=== PATIENT | female | born 1955 | race Caucasian/White ===

== ENCOUNTER 2019-12-13 23:33 | Emergency (ER) | payer MEDICARE, SELFPAY ==
--- NOTE | ~2019-12-13 | CT_ITS ---
EXAMINATION: CT brain wo con DATE: 12/14/2019 00:47 INDICATION: Status post fall. Head injury. Laceration. TECHNIQUE: Computed tomography (CT) of the head was performed without intravenous contrast. The dose- length product was 605.33 mGy-cm. COMPARISON: None FINDINGS: There is an acute subdural hematoma left high parietal convexity measuring 7 mm greatest th ickness. Small amount of subarachnoid hemorrhage in the right frontal lobe. No significant mass effec t. No ventriculomegaly or midline shift. A slurry cisterns are patent. No depressed skull fractures. There is a left posterior parietal scalp laceration. IMPRESSION: 1. Acute subdural hematoma left high parietal convexity measuring 7 mm greatest thickness. 2: Small subarachnoid hemorrhage right frontal lobe. Reviewed, dictated and finalized at location A. [employer] GU[employer]
[2019-12-13 23:31] VITALS: BP 145/79; PULSE 98; RESP 17; TEMP 37.1; O2SAT 100
--- NOTE | 2019-12-13 23:42 | ED.FALL ---
HPI - Fall General Chief Complaint: Fall Stated Complaint: fall Time Seen by Provider: 12/13/19 23:41 Source: patient and RN notes reviewed Mode of arrival: EMS Limitations: no limitations History of Present Illness HPI Narrative: The pt is a 64 y/o female who presents to the ED with c/o a fall that occurred this evening. The pt states that she had drank 3 gin and tonics and fell down two stair steps. The pt hit the back of her head during the fall but did not obtain any other injuries. The pt reports a laceration on her posterior scalp as well as pain at the back of her head around the site of the laceration, but denies LOC. She states that she has not been sick recently and that she is not on any blood thinners. complaint: fall Onset (ago): hour(s) (this evening) Fall from: down stairs (#) (2 stair steps) Loss of consciousness: none Context: alcohol use Associated symptoms (after fall): other (laceration on posterior scalp, pain at back of head) Related Data Home Medications Medication Instructions Recorded Confirmed alprazolam 12/14/19 levothyroxine 12/14/19 meloxicam 12/14/19 triamterene-hydrochlorothiazid tablet 12/14/19 Allergies Allergy/AdvReac Type Severity Reaction Status Date / Time Penicillins Allergy Unknown Verified 12/13/19 23:46 Review of Systems Review of Systems: All systems reviewed & are unremarkable except as noted in HPI and below Musculoskeletal: Musculoskeletal: Reports other (pain at back of head) Integumentary/Breasts: Skin/Breast: Reports other (laceration on posterior scalp) Neurologic: Denies syncope PMFSH Past Medical History Medical History (Updated 12/14/19 @ 02:07 by Piero Garcia MD) Anxiety Arthritis Hypertension Hypothyroid Surgical History Surgical History (Updated 12/14/19 @ 01:38 by Kathi Beckham) No pertinent past surgical history Social History Social History (Updated 12/14/19 @ 01:38 by Kathi Beckham) Smoking status: Never smoker Alcohol intake: current Exam Const: General: healthy appearing and no acute distress Nutritional Appearance: well nourished HENMT: Mouth: Yes lip normal and Yes moist mucous membranes Eyes: Conjunctivae: conjunctivae normal Pupils: Equal, round and reactive pupils present Resp: Effort & Inspection: normal respiratory effort Auscultation: clear to auscultation bilaterally Cardio: Rate: regular rate Rhythm: regular rhythm GI: GI Palp: Yes Soft to palpation and No Tenderness to palpation present (GI) Auscultation: normal bowel sounds Back/Spine/Pelvis: Back: other (full ROM) Skin: General skin exam: normal color, dry skin and other (warm) Other: 4cm irregular posterior scalp laceration Neuro: General: patient oriented x3 Speech: normal speech Extrem: General: full ROM Psych: Mental Status: mental status grossly normal Affect: normal affect Other: tearful Course Consultations Consultation #1: Discussed case with Dr. Mackenzie EDP at [facility]. Accepted admission to [place] ED. Date: 12/14/19 Time: 01:15 Vital Signs Vital signs: Vital Signs Temperature 37.1 C 12/13/19 23:31 Pulse Rate 98 12/13/19 23:31 Respiratory Rate 17 12/13/19 23:31 Blood Pressure 145/79 H 12/13/19 23:31 Pulse Oximetry 100 12/13/19 23:31 Temperature 37.1 C 12/13/19 23:31 Pulse Rate 97 12/14/19 01:55 Respiratory Rate 18 12/14/19 01:55 Blood Pressure 143/71 H 12/14/19 01:55 Pulse Oximetry 98 12/14/19 01:55 MDM - Fall Differential Diagnosis Differential diagnosis: Likely concussion without loss of consciousness and other (SDH, SAH, Scalp laceration, contusion) Medical Records Attestation: I reviewed the patient's medical records. Lab Data Attestation: I reviewed the patient's lab results. Result diagrams: 12/14/19 02:04 12/14/19 01:29 Labs: Lab Results 12/14/19 12/14/19 12/14/19 Range/Units 01:29 01:29 02:04
[2019-12-14 01:13] VITALS: BP 130/70; PULSE 95; RESP 17; O2SAT 98
[2019-12-14] MEDS: levETIRAcetam 1000MG/NACL100ML 1,000 MG/100 ML BAG 400 MG IVPB (01:39)
[2019-12-14 01:45] LABS: INR 0.8; Prothrombin Time 11.2 Seconds (11.1-14.7)
[2019-12-14 01:46] LABS: Blood Urea Nitrogen 23 mg/dL (7-17); Calcium 9.7 mg/dL (8.4-10.2); Carbon Dioxide 20 mmol/L (22-30); Chloride 101 mmol/L (98-107); Estimated CRCL calculation 72 ml/min; Estimated Glomerular Filt Rate > 60; Glucose 125 mg/dL (65-105); Partial Thromboplastin Time 25.9 SECONDS (22.3-36.8); Potassium 3.7 mmol/L (3.4-5.0); Sodium 137 mmol/L (137-145)
[2019-12-14 01:55] VITALS: BP 143/71; PULSE 97; RESP 18; O2SAT 98
--- NOTE | 2019-12-14 02:05 | PC.NURSE ---
0142 - [facility] decline transfer 0145 - [facility] accepted transfer with 0245 ETA. 0148 - [facility] accepted transfer. 0202 - Cancel [facility].
[2019-12-14 02:14] LABS: Basophils Percent Auto 0.2 % (0.2-1.2); Eosinophils Absolute Auto 0.1 K/mm3 (0-0.3); Hematocrit 40.7 % (37.0-47.0); Hemoglobin 13.6 g/dL (12.0-15.0); Immature Granulocyte Absolute 0.04 K/mm3 (0.00-0.031); Immature Granulocyte Percent A 0.4 % (0-0.5); Lymphocytes Absolute Auto 1.81 K/mm3 (0.9-3.2); Lymphocytes Percent Auto 17.6 % (18.3-44.2); Mean Corpuscular HGB Conc 33.4 g/dl (32-36); Mean Corpuscular Volume 92.7 fl (80-100); Mean Platelet Volume 9.9 fl (7.4-10.4); Monocytes Absolute Auto 0.6 K/mm3 (0.1-0.6); Monocytes Percent Auto 6.1 % (2.6-8.5); Neutrophils Absolute Auto 7.7 K/mm3 (1.3-6.7); Neutrophils Percent Auto 74.7 % (45.5-73.1); Platelet Count Result 281 k/mm3 (150-375); Red Blood Count 4.39 M/mm3 (4.2-5.4); Red Cell Distribution Width 13.2 % (11.5-14.5); White Blood Count 10.3 K/mm3 (4.5-10.0)
== END 2019-12-14 02:07 | disposition short-term general hospital (02) ==
PROVIDERS: Emergency Provider Emergency Medicine
DX: S06.5X0A Traumatic subdural hemorrhage without loss of consciousness, initial encounter (principal); S06.6X0A Traumatic subarachnoid hemorrhage without loss of consciousness, initial encounter; S01.01XA Laceration without foreign body of scalp, initial encounter; F41.9 Anxiety disorder, unspecified; M19.90 Unspecified osteoarthritis, unspecified site; I10 Essential (primary) hypertension; E03.9 Hypothyroidism, unspecified; W10.9XXA Fall (on) (from) unspecified stairs and steps, initial encounter
CPT/HCPCS: 36415; 70450; 80048; 85025; 85610; 85730; 96365; 99291; J1953

== ENCOUNTER → 2022-09-21 14:40 | Outpatient (CLI) | payer MEDICARE, SELFPAY ==
--- NOTE | ~2022-09-21 | MR_ITS ---
EXAMINATION: MR lumbar spine wo con DATE: 09/21/2022 15:23 INDICATION: Radiculopathy, lumbar region. Low back pain. Left leg pain. TECHNIQUE: Magnetic resonance imaging (MRI) of the lumbar spine was performed without intravenous con trast. Sequences included sagittal T2-weighted FSE, sagittal T2-weighted FS FSE, sagittal T1-weighted FSE, and axial T2-weighted FSE. COMPARISON: None FINDINGS: There is 27 degrees levoscoliosis of lumbar spine. There is mild chronic anterior wedging o f T11 and T12 vertebral bodies. There is severely decreased disc height at T12-L1, L2-L3, L3-L4, L4-L 5, and L5-S1 with endplate remodeling. The distal spinal cord signal intensity is normal. The conus m edullaris is at L2. 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 There are cysts in the kidneys measuring up to 7.4 cm on the left. The following disc levels are specifically discussed: T12-L1: The disc is bulging. There is moderate bilateral facet joint osteoarthritis. There is mild bi lateral neural foraminal stenosis. There is mild central canal stenosis. L1-L2: The disc does not extend beyond the endplate margin. There is mild bilateral facet joint osteo arthritis. There is no neural foraminal stenosis. There is no central canal stenosis. L2-L3: The disc is bulging and has an annular fissure. There is moderate right and mild left facet brett int osteoarthritis. There is mild bilateral neural foraminal stenosis. There is mild central canal st enosis. L3-L4: The disc is bulging and has an annular fissure. There is severe bilateral facet joint osteoart hritis. There is mild bilateral neural foraminal stenosis. There is mild central canal stenosis. L4-L5: The disc is bulging and has an annular fissure. There is severe bilateral facet joint osteoart hritis. There is mild bilateral neural foraminal stenosis. There is mild central canal stenosis. L5-S1: The disc is bulging and has an annular fissure. There is moderate right and severe left facet joint osteoarthritis. There is moderate left neural foraminal stenosis. There is mild central canal s tenosis. IMPRESSION: 1. Severe lumbar spondylosis. 2. Lumbar levoscoliosis. Reviewed, dictated and finalized at location A. [employer] REPA[employer]ER
== END ==
PROVIDERS: Visit Provider Anesthesiology
DX: M47.26 Other spondylosis with radiculopathy, lumbar region (principal)
CPT/HCPCS: 72148